=== PATIENT | female | born 1960 | race Two or more races ===

== ENCOUNTER 2016-11-26 20:03 | Emergency (ER) | payer OTHER ==
[~2016-11-26] VITALS: Ht 170.2 cm; Wt 65.3 kg
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
[2016-11-26 20:46] LABS: BASOPHILS # (AUTO) 0.1 /CMM (0.0-0.2); BASOPHILS % (AUTO) 0.8 % (0.0-2.0); EOSINOPHILS # (AUTO) 0.2 /CMM (0.0-0.7); EOSINOPHILS % (AUTO) 2.6 % (0.0-6.0); HEMATOCRIT 38 % (33-45); LYMPHOCYTES # (AUTO) 2.3 /CMM (0.8-4.8); MEAN CORPUSCULAR HEMOGLOBIN 32 PG (26.0-33.0); MEAN CORPUSCULAR HGB CONC 34 g/dl (31.0-36.0); MEAN CORPUSCULAR VOLUME 92 fL (82-100); MONOCYTES # (AUTO) 0.4 /CMM (0.1-1.30); MONOCYTES % (AUTO) 6.4 % (2.0-12.0); NEUTROPHILS # (AUTO) 3.7 /CMM (1.8-8.9); NEUTROPHILS % (AUTO) 55.2 % (43.0-81.0); PLATELET COUNT (AUTO) 289 /CMM (150-450); RDW COEFFICIENT OF VARIATION 11.5 (11.5-15.0); RED BLOOD CELL COUNT(AUTO) 4.12 MIL/uL (4.0-5.2); WHITE BLOOD COUNT (AUTO) 6.7 K/uL (4.3-11.0)
--- NOTE | 2016-11-26 20:48 | NUR ---
BLOOD DRAWN BY CHEESE SPRAYER.
--- NOTE | 2016-11-26 20:51 | NUR ---
PT TRANSPORTED TO RADIOLOGY FOR CT HEAD.
[2016-11-26 20:57] LABS: CALCIUM, SERUM 9.2 mg/dL (8.5-10.1); CREATININE 0.8 mg/dL (0.6-1.3)
--- NOTE | 2016-11-26 21:45 | NUR ---
Patient discharged to home in stable condition. Written and verbal after care instructions given. Patient verbalizes understanding of instruction. ambulatory with a steady gait
[2016-11-26 21:46] VITALS: BP 134/62
== END 2016-11-26 21:46 | disposition home or self-care (01) ==
LOC: ER 20:06
DX: F07.81 Postconcussional syndrome (principal); R51 Headache; F32.9 Major depressive disorder, single episode, unspecified
CPT/HCPCS: 36415; 70450; 80048; 85025; 99285; A4606; Z7610

== ENCOUNTER 2017-06-26 14:58 | Inpatient (IN) | payer OTHER ==
[~2017-06-26] VITALS: Ht 170.2 cm; Wt 63.5 kg
--- NOTE | 2017-06-26 15:05 | NUR ---
AAOX3, BIB FAMILY C/O DOUBLE VISION AND UNSTEADY BALANCE STARTED 11AM TODAY. BILATERAL STRONG AND EQUAL IGNITER CAPPER TO UPPER EXTREMITIES. FACE SYMMETRICAL. RR IS EVEN AND UNLABORED WITH NAD NOTED. AWAITING MD FOR EVAL.
[2017-06-26] MEDS ORDERED: IOHEXOL-350 100 ML VIAL IV ONE (15:31)
[2017-06-26 15:32] LABS: BASOPHILS % (AUTO) 0.7 % (0.0-2.0); EOSINOPHILS # (AUTO) 0.1 /CMM (0.0-0.7); EOSINOPHILS % (AUTO) 1.7 % (0.0-6.0); HEMATOCRIT 38 % (33-45); HEMOGLOBIN 13.3 g/dL (11.5-14.8); LYMPHOCYTES # (AUTO) 1.4 /CMM (0.8-4.8); LYMPHOCYTES % (AUTO) 23.2 % (20.0-44.0); MEAN CORPUSCULAR HEMOGLOBIN 32 PG (26.0-33.0); MEAN CORPUSCULAR HGB CONC 35 g/dl (31.0-36.0); MEAN CORPUSCULAR VOLUME 91 fL (82-100); MONOCYTES # (AUTO) 0.3 /CMM (0.1-1.30); MONOCYTES % (AUTO) 4.6 % (2.0-12.0); NEUTROPHILS # (AUTO) 4.2 /CMM (1.8-8.9); NEUTROPHILS % (AUTO) 69.8 % (43.0-81.0); PLATELET COUNT (AUTO) 282 /CMM (150-450); RDW COEFFICIENT OF VARIATION 11.4 (11.5-15.0); RED BLOOD CELL COUNT(AUTO) 4.17 MIL/uL (4.0-5.2)
[2017-06-26] MEDS ORDERED: IOHEXOL-300 100 ML VIAL IV ONE (15:32)
[2017-06-26] MEDS ORDERED: IV NS 0.9% 250 ML IV ONE (15:33)
[2017-06-26 15:38] LABS: CALCIUM, SERUM 9.3 mg/dL (8.5-10.1); CARBON DIOXIDE 27 mmol/L (21-32); CHLORIDE 103 mmol/L (98-107); CREATININE 0.8 mg/dL (0.6-1.3); GLUCOSE 102 mg/dL (74-106); POTASSIUM 3.6 mmol/L (3.5-5.1); SODIUM SERUM 138 mmol/L (136-145); UREA NITROGEN, BLOOD 12 mg/dL (7-18)
[2017-06-26 15:41] LABS: INR 0.96 (0.85-1.15)
[2017-06-26 15:48] LABS: TROPONIN I < 0.017 ng/mL (0.00-0.056)
[2017-06-26] MEDS ORDERED: BUPR200T PO (16:15)
[2017-06-26] MEDS ORDERED: TOPI25TA PO (16:15)
[2017-06-26] MEDS ORDERED: PANT20TA2 PO (16:15)
[2017-06-26] MEDS ORDERED: TRAZ-147 PO (16:15)
[2017-06-26] MEDS ORDERED: DULO20CA PO (16:15)
[2017-06-26] MEDS ORDERED: LAMO200T PO (16:15)
[2017-06-26 16:20] LABS: CHOLESTEROL 258 mg/dL (<200); HDL CHOLESTEROL 94 mg/dL (40-60); LDL 154 mg/dL (0-99); TRIGLYCERIDES 58 mg/dL (30-150)
[2017-06-26] MEDS ORDERED: IV NS 0.9% 1,000 ML IV PRN (16:23)
[2017-06-26] MEDS ORDERED: hydrALAZINE HCL IV 20 MG VIAL IV PRN ×2 (16:30→17:00)
[2017-06-26] MEDS ORDERED: ONDANSETRON HCL/PF 4 MG/2 ML VIAL IVP PRN ×2 (16:30→17:00)
[2017-06-26] MEDS ORDERED: ZOLPIDEM TARTRATE 5 MG TABLET PO PRN ×2 (16:30→17:00)
[2017-06-26] MEDS ORDERED: HYDROCODONE/APAP 5/325MG 1 EACH TABLET PO PRN ×2 (16:30→17:00)
[2017-06-26] MEDS ORDERED: Z GUARD REMEDY 2 OZ OINT TP PRN ×2 (16:30→17:00)
[2017-06-26] MEDS ORDERED: MAG HYDROX/AL HYDROX/SIMETH 30 ML UDC PO PRN ×2 (16:30→17:00)
[2017-06-26] MEDS ORDERED: ENOXAPARIN SODIUM 40 MG/0.4 ML DISP.SYRIN SQ SCH (16:30)
[2017-06-26] MEDS ORDERED: ASPIRIN 325 MG TABLET PO ONE (16:30)
[2017-06-26] MEDS ORDERED: MAGNESIUM HYDROXIDE 30 ML UDC PO PRN ×2 (16:30→17:00)
[2017-06-26] MEDS ORDERED: LORAZEPAM INJ 2 MG/ML VIAL IV PRN ×2 (16:30→17:00)
[2017-06-26] MEDS ORDERED: ACETAMINOPHEN 325 MG TABLET PO PRN ×2 (16:30→17:00)
[2017-06-26] MEDS ORDERED: ASPIRIN 325 MG TABLET ONE (16:37)
--- NOTE | 2017-06-26 16:44 | NUR ---
DR DANIELS AT FOR AN UPDATE AND RE-EVAL.
--- NOTE | 2017-06-26 16:51 | NUR ---
BED 314-1
--- NOTE | 2017-06-26 16:54 | NUR ---
REPORT GIVEN TO TERRELL MCKEON FOR IKER 314-1
[2017-06-26] MEDS ORDERED: TOPIRAMATE 25 MG TABLET PO SCH (17:00)
[2017-06-26] MEDS ORDERED: BLOOD SUGAR DIAGNOSTIC 1 EACH STRIP IN SCH ×3 (17:30→18:00)
[2017-06-26] MEDS: BLOOD SUGAR DIAGNOSTIC 1 EACH STRIP IN SCH ×2 (18:48→23:51)
[2017-06-26] MEDS: ENOXAPARIN SODIUM 40 MG/0.4 ML DISP.SYRIN SQ SCH (18:51)
[2017-06-26] MEDS: IV NS 0.9% 1,000 ML IV PRN (18:52)
--- NOTE | 2017-06-26 19:00 | NUR ---
ALERT AND ORIENTATED SPEECH CLEAR SKIN WARM AND DRY MOVING ALL EXTREMITIES ADMITTED
--- NOTE | 2017-06-26 19:09 | NUR ---
CONTACT CENTER MANAGER NOTES RECEIVED PT FROM ER NURSE IN STABLE CONDITION. PT WILL BE ADMITTED UNDER TELE TO R/O STROKE. PT IS A/O X3 NO SOB OR SIGNS OF DISTRESS NOTED. BREATHING IS EVEN AND UNLABORED. IV NOTED TO BE PATENT AND INTACT INFUSING NS @ 75ML/HR. PT IS TOLERATING INFUSION WELL. NO REDNESS OR SIGNS OF INFILTRATION NOTED. NURSING SWALLOW EVAL COMPLETED. PT RECEIVED ASA IN ER AND LOVENOX ORDERED. BS IS 86. STROKE PACKET PROVIDED TO PT. BED IN LOW LOCKED POSITION, SIDE RAILS UP X2, CALL LIGHT WITHIN REACH. WILL ENDORSE OT NIGHTSHIFT NURSE TO COMPLETE ADMISSION
--- NOTE | 2017-06-26 19:48 | NUR ---
TEXTED DR. ESPINOZA FOR MRA APPROVAL.
--- NOTE | 2017-06-26 19:49 | NUR ---
DR. ESPINOZA TEXTED BACK, ON HOLD FOR NOW HE WILL LET US KNOW.
[2017-06-26 20:00] VITALS: BP 100/63
[2017-06-26 20:02] LABS: THYROID STIMULATING HORMONE 1.413 uIU/mL (0.358-3.74)
[2017-06-26 20:19] VITALS: BP 100/63
[2017-06-26] MEDS ORDERED: TRAZODONE 50 MG TABLET PO SCH (22:00)
[2017-06-26] MEDS: TRAZODONE 50 MG TABLET PO SCH (22:35)
[2017-06-27] VITALS (9 sets, daily range): BP systolic 97–121; BP diastolic 54–73
--- NOTE | 2017-06-27 04:50 | NUR ---
SHE SCORED ON THE NIHSS SCALE 0. SWALLOW EVAL SHE PASSED STEADY GAIT SEEN MOVING ALL EXTREMITIES. MD CALLED REGARDING CPAP THAT SHE USES AT HOME AT NIGHT, ORDERED AND RESP CALLED AND NOTIFIED.PATIENT AND RESP SPOKE TOGETHER AND SHE DECIDED SHE WASN'T GOING TO USE IT TONIGHT AND IF SHE STAYS SHE WILL TONIGHT. PATIENT CHECKED ON FREQ D/T HX SLEEP APNEA, NO SEEN PROBLEM HS SNACK SERVED AND CONSUMED 100% bLOOD SUGAR AT HE 151, ORDER READS TO NOTIFY MD IF GR THAN 150, MD HUMMEL NOIFIED. STROKE EDUCATION PLACED AT THE BEDSIDE
[2017-06-27] MEDS: BLOOD SUGAR DIAGNOSTIC 1 EACH STRIP IN SCH ×3 (05:59→17:53)
[2017-06-27] MEDS: IV NS 0.9% 1,000 ML IV PRN (06:02)
--- NOTE | 2017-06-27 07:00 | NUR ---
RN NOTES: PATIENT RESTING IN BED. NONLABORED BREATHING NOTED ON ROOM AIR. NO SIGNS OF DISTRESS NOTED. IV SITE PATENT ON RIGHT AC PATENT AND INTACT. PATIENT DENIES PAIN. PATIENT AOX4. BED IN LOWEST LOCKED POSITION. CALL LIGHT WITHIN REACH. WILL CONTINUE TO MONITOR
[2017-06-27] MEDS: TOPIRAMATE 25 MG TABLET PO SCH ×2 (07:33→17:50)
[2017-06-27] MEDS ORDERED: ASPIRIN EC 325 MG TABLET.DR PO SCH (09:00)
[2017-06-27] MEDS ORDERED: buPROPion SR 100 MG TABLET.ER PO SCH (09:00)
[2017-06-27] MEDS ORDERED: DULOXETINE HCL 20 MG CAPSULE.DR PO SCH (09:00)
[2017-06-27] MEDS ORDERED: LamoTRIgine 100 MG TABLET PO SCH (09:00)
[2017-06-27] MEDS: buPROPion SR 100 MG TABLET.ER PO SCH (09:38)
[2017-06-27] MEDS: LamoTRIgine 100 MG TABLET PO SCH (09:39)
[2017-06-27] MEDS: DULOXETINE HCL 20 MG CAPSULE.DR PO SCH (09:40)
[2017-06-27] MEDS: ASPIRIN EC 325 MG TABLET.DR PO SCH (09:40)
--- NOTE | 2017-06-27 13:11 | NUR ---
RN NOTES: DR MURRAY ORDERED LIPITOR 10 MG HS PO
--- NOTE | 2017-06-27 16:09 | NUR ---
RN NOTES: DR MURRAY INFORMED THAT THERE ARE NO CURRENT ORDERED SETTINGS FOR CPAP AT NIGHT. ACCORDING TO PATIENT, NO SOB DURING NIGHT AND WAS ABLE TO SLEEP WELL
[2017-06-27 16:12] LABS: APPEARANCE,URINE SL CLOUDY (CLEAR); BILIRUBIN,URINE NEGATIVE (NEGATIVE); BLOOD, URINE NEGATIVE Ery/uL (NEGATIVE); COLOR,URINE YELLOW (YELLOW); KETONES,URINE NEGATIVE (NEGATIVE); LEUKOCYTE ESTERASE ,URINE NEGATIVE (NEGATIVE); NITRITE, URINE NEGATIVE (NEGATIVE); PH,URINE 7.5 (5.0-8.0); PROTEIN,URINE NEGATIVE (NEGATIVE); UGLUCOSE NEGATIVE (NEGATIVE); UROBILINOGEN,URINE 0.2 EU/dL (0.2)
--- NOTE | 2017-06-27 19:30 | NUR ---
RN NOTES: PATIENT RESTING IN BED. NONLABORED BREATHING NOTED ON ROOM AIR. NO SIGNS OF DISTRESS NOTED. IV SITE PATENT ON RIGHT AC PATENT AND INTACT. PATIENT DENIES PAIN. PATIENT AOX4. BED IN LOWEST LOCKED POSITION. CALL LIGHT WITHIN REACH. PATIENT ON TELE MONITOR WITH SINUS RHYTHM WITH HR OF 69. SEIZURE PRECAUTIONS IMPLEMENTED, PADS ON SIDERAILS AND SUCTION SET UP. NO SEIZURES NOTED DURING SHIFT
--- NOTE | 2017-06-27 19:40 | NUR ---
RN OPENING NOTES RECEIVED REPORT FROM KALIA RNMANUEL. FOUND Pt AWAKE, RESTING IN BED. NO S/S OF ACUTE DISTRESS OR SOB NOTED. Pt IS A/OX4, VERBAL, ABLE TO MAKE NEEDS KNOWN. IV ACCESS ON RAC, IVF NS @75ML/HR. TELE READING SR. SAFETY MEASURES IN PLACE. BED LOW, LOCKED, HOB ELEVATED, SIDE RAILS UP, CALL LIGHT AND BEDSIDE TABLE WITHIN REACH. WILL CONTINUE TO MONITOR Pt THROUGHOUT THE NIGHT FOR SAFETY.
[2017-06-27] MEDS: TRAZODONE 50 MG TABLET PO SCH (21:42)
[2017-06-27] MEDS: ENOXAPARIN SODIUM 40 MG/0.4 ML DISP.SYRIN SQ SCH (21:48)
[2017-06-27] MEDS ORDERED: ATORVASTATIN 10 MG TABLET PO SCH (22:00)
[2017-06-28] VITALS: BP 118/65
--- NOTE | 2017-06-28 | NUR ---
RN NOTES BG 106. NO INSULIN COVERAGE NEEDED AT THIS TIME.
[2017-06-28] MEDS: BLOOD SUGAR DIAGNOSTIC 1 EACH STRIP IN SCH ×3 (00:17→12:29)
--- NOTE | 2017-06-28 00:20 | NUR ---
RN NOTES BG 106. NO INSULIN NEEDED AT THIS TIME.
[2017-06-28 04:00] VITALS: BP 109/70
--- NOTE | 2017-06-28 06:35 | NUR ---
AC ACCUCHECK 94. NO INSULIN COVERAGE NEEDED AT THIS TIME.
--- NOTE | 2017-06-28 06:50 | NUR ---
RN CLOSING NOTES NO SIGNIFICANT CHANGES IN Pt's CONDITION. Pt REMAINS STABLE AT THIS TIME. NO S/S OF ACUTE DISTRESS OR SEVERE SOB NOTED DURING THE NIGHT. TELE READING SB 59 - SR 60s. ALL NEEDS MET AND ATTENDED TO. SAFETY MEASURES IN PLACE. WILL ENDORSE TO DAYSHIFT RN FOR Pt's IKER.
[2017-06-28 06:57] VITALS: BP 111/65
[2017-06-28] MEDS: TOPIRAMATE 25 MG TABLET PO SCH (07:00)
--- NOTE | 2017-06-28 07:15 | NUR ---
RN OPENING NOTES PATIENT RESTING IN BED. NONLABORED BREATHING NOTED ON ROOM AIR. NO SIGNS OF DISTRESS NOTED. PATIENT DENIES PAIN. NO SLURRED SPEECH, DENIES DOUBLE VISION AT THE MOMENT. NO NEW ONSET OF WEAKNESS NOTED. IV SITE ON LEFT AC PATENT AND INTACT. BED IN LOWEST LOCKED POSITION. CALL LIGHT WITHIN REACH. WILL CONTINUE TO MONITOR PATIENT ON TELE MONITOR WITH SINUS RHYTHM WITH HEART RATE 64.
[2017-06-28 07:33] LABS: CALCIUM, SERUM 8.5 mg/dL (8.5-10.1); CREATININE 0.6 mg/dL (0.6-1.3); PHOSPHORUS 4.5 mg/dL (2.5-4.9); POTASSIUM 3.8 mmol/L (3.5-5.1)
[2017-06-28 07:40] LABS: BASOPHILS % (AUTO) 0.7 % (0.0-2.0); EOSINOPHILS # (AUTO) 0.2 /CMM (0.0-0.7); EOSINOPHILS % (AUTO) 5.4 % (0.0-6.0); HEMATOCRIT 35 % (33-45); HEMOGLOBIN 12.1 g/dL (11.5-14.8); LYMPHOCYTES # (AUTO) 1.6 /CMM (0.8-4.8); LYMPHOCYTES % (AUTO) 38.2 % (20.0-44.0); MEAN CORPUSCULAR HEMOGLOBIN 33 PG (26.0-33.0); MEAN CORPUSCULAR HGB CONC 35 g/dl (31.0-36.0); MEAN CORPUSCULAR VOLUME 93 fL (82-100); MONOCYTES # (AUTO) 0.3 /CMM (0.1-1.30); MONOCYTES % (AUTO) 6.3 % (2.0-12.0); NEUTROPHILS % (AUTO) 49.4 % (43.0-81.0); PLATELET COUNT (AUTO) 222 /CMM (150-450); RDW COEFFICIENT OF VARIATION 12.5 (11.5-15.0); RED BLOOD CELL COUNT(AUTO) 3.72 MIL/uL (4.0-5.2); WHITE BLOOD COUNT (AUTO) 4.1 K/uL (4.3-11.0)
[2017-06-28 07:43] LABS: THYROID STIMULATING HORMONE 1.309 uIU/mL (0.358-3.74)
[2017-06-28] MEDS: LamoTRIgine 100 MG TABLET PO SCH (09:31)
[2017-06-28] MEDS: ASPIRIN EC 325 MG TABLET.DR PO SCH (09:31)
[2017-06-28] MEDS: DULOXETINE HCL 20 MG CAPSULE.DR PO SCH (09:31)
[2017-06-28] MEDS: buPROPion SR 100 MG TABLET.ER PO SCH (09:32)
--- NOTE | 2017-06-28 15:31 | NUR ---
RN NOTES: PATIENT STATES FEELING NAUSEOUS AND REQUESTS ZOFRAN. ZOFRAN ADMINISTERED. NO SEIZURES NOTED. PATIENT DENYING DOUBLE VISION AT THE MOMENT. PATIENT PERRLA. NO NAUSEA NOTED. VS WNL. DENIES HEADACHES.
[2017-06-28 16:00] VITALS: BP 114/69
--- NOTE | 2017-06-28 17:20 | NUR ---
RN NOTES: PATIENT DISCHARGE HOME PER MD ORDERS. PATIENT STABLE. NONLABORED BREATHING NOTED ON ROOM AIR. AOX4. PERRLA. DENIES NAUSEA AND DENIES HEADACHES AT THE MOMENT. IV SITE REMOVED. PATIENT EDUCATED THOROUGHLY ON MEDICATIONS, EXISTCARE, AND MD INSTRUCTIONS. PATIENT VERBALIZED UNDERSTANDING. ALL VALUABLES GIVEN TO PATIENT. PATIENT AMBULATING WITHOUT ASSISTANCE AND IS STEADY. NO SEIZURES NOTED DURING SHIFT. PATIENT LEFT VIA TAXI VOUCHER TO HOME, ACCOMPANIED TO TAXI DOOR BY A STAFF MEMBER
== END 2017-06-28 17:15 | disposition home or self-care (01) | DRG 58 ==
LOC: ER 14:59 → TELE 17:19 → MED 06-28 09:34
PROVIDERS: ADMIT Internal Medicine; ATTEND Internal Medicine
DX: R47.1 Dysarthria and anarthria (principal); S06.0X9S Concussion with loss of consciousness of unspecified duration, sequela; H53.2 Diplopia; F32.9 Major depressive disorder, single episode, unspecified; G47.33 Obstructive sleep apnea (adult) (pediatric); K21.9 Gastro-esophageal reflux disease without esophagitis; G43.909 Migraine, unspecified, not intractable, without status migrainosus; V89.2XXS Person injured in unspecified motor-vehicle accident, traffic, sequela; Z79.899 Other long term (current) drug therapy; D64.9 Anemia, unspecified; F41.9 Anxiety disorder, unspecified
CPT/HCPCS: 36415; 70450-TC; 70496-TC; 70498-TC; 71045-TC; 80048-TC; 80061-TC; 80305; 81000-TC; 82746; 82962-TC; 83540-TC; 83735-TC; 83880; 84100-TC; 84443-TC; 84484-TC; 85025-TC; 85652-TC; 85730-TC; 87081-TC; 92611-TC; 93307-TC; A4606; J1650; J2405; J7030; J7050; Q9967; Z7610

== ENCOUNTER 2017-09-19 14:01 | Emergency (ER) | payer OTHER ==
[~2017-09-19] VITALS: Ht 162.6 cm; Wt 61.2 kg
[~2017-09-19 14:01] MED LIST: BUPR200T PO; DULO20CA PO; LAMO200T PO; PANT20TA2 PO; TOPI25TA PO; TRAZ-214 PO
[2017-09-19] MEDS ORDERED: TDAP [DIPH/PERTUSSIS/TET] 0.5 ML VIAL IM ONE ×2 (14:15→15:00)
--- NOTE | 2017-09-19 14:20 | NUR ---
TDAP GIVEN IM IN RT DELTOID. LOT [id number]/ EXP 06/11/19
--- NOTE | 2017-09-19 14:46 | NUR ---
Patient discharged to home in stable condition. Written and verbal after care instructions given. Patient verbalizes understanding of instruction AND RX. PT AMBULATED OUT WITH A STEADY GAIT VSS.
[2017-09-19 14:48] VITALS: BP 117/70
== END 2017-09-19 14:55 | disposition home or self-care (01) ==
LOC: ER 14:01
DX: S61.012A Laceration without foreign body of left thumb without damage to nail, initial encounter (principal); Z60.2 Problems related to living alone; W26.8XXA Contact with other sharp object(s), not elsewhere classified, initial encounter; Y93.89 Activity, other specified; Y92.009 Unspecified place in unspecified non-institutional (private) residence as the place of occurrence of the external cause; Y99.8 Other external cause status
CPT/HCPCS: 90715; A4606; A6402; Z7610